=== PATIENT | male | born 1960 | race Caucasian/White ===

== ENCOUNTER 2017-04-25 16:33 | Observation (INO) ==
[2017-04-25] MEDS ORDERED: METOPROLOL TARTRATE 25 MG TABLET PO STA (17:02)
[2017-04-25] MEDS ORDERED: ALUM/MAG/SIMETH/LIDO VISC 1:1 30 ML BOTTLE PO STA (17:02)
[2017-04-25] MEDS ORDERED: MORPHINE 2 MG/1 ML SYRINGE IV STA (17:02)
[2017-04-25] MEDS ORDERED: ONDANSETRON 4 MG/2 ML VIAL IV STA (17:02)
[2017-04-25] MEDS ORDERED: NITROGLYCERIN 2% OINT 1 INCH/GM PACK TOP STA (17:02)
[2017-04-25] MEDS ORDERED: ASPIRIN 325 MG TABLET PO STA (17:02)
[2017-04-25] MEDS ORDERED: ENOXAPARIN 100 MG/ML SYRINGE SUBCUT STA (17:02)
[2017-04-25] MEDS ORDERED: NITROGLYCERIN 2% OINT 1 INCH/GM PACK TOP ONE (17:12)
[2017-04-25] MEDS ORDERED: ENOXAPARIN 80 MG/0.8 ML SYRINGE SUBCUT ONE (17:12)
[2017-04-25] MEDS ORDERED: ASPIRIN 325 MG TABLET ONE (17:13)
[2017-04-25] MEDS ORDERED: MORPHINE 2 MG/1 ML SYRINGE ONE (17:13)
[2017-04-25] MEDS ORDERED: ALUM/MAG/SIMETH/LIDO VISC 1:1 30 ML BOTTLE PO ONE (17:13)
[2017-04-25] MEDS ORDERED: ONDANSETRON 4 MG/2 ML VIAL ONE (17:13)
--- NOTE | 2017-04-25 17:19 | Emergency Department Note ---
Von Sanders Brittany, am scribing for, and in the presence of, Jhon Drake MD 17:08. Vidal Sanders Charles R, MD, personally performed the services described in this documentation, ascribed by Tram Longoria in my presence, and it is both accurate and complete . Arrival - Arrival Chief Complaint: Chest Pain Stated Complaint: chest pain, light headed,sob ED Nursing Triage Note: c/o chest heaviness and sob onset 4 days ago. Mode of Arrival: Ambulatory Limitations: No Limitations Source: Patient, RN Notes Reviewed - History of Present Illness HPI Narrative: Patient is a 56 y/o white male presenting to the ED with c/o chest pain with an onset of 4 days ago. Patient describes this pain as a heaviness/ "ton of bricks " beginning in the left side of the chest that radiates into the left axilla. He confirms associated shortness of breath and dizziness, but denies any diaphoresis, N/V, radiation of pain into the back, neck, or down the arm. Daughter in room reports that upon patient standing he becomes very dizzy and becomes near syncopal. For the past 3 days he has mostly lied on the couch. She reports that he was seen at [facility] [place] [place] for this pain and states an EKG was performed and patient was given NTG, but he was DC'd and she believes that this may have been due to patient's lack of insurance. He is a patient of Dr. Spring. Patient has a MHx significant for [place] at the age of 36 and a strong FHx for Heart Dz. No other complaint/pain in the ED at this time. Onset (ago): day(s) (4) Consistency: constant Allergies/Adverse Reactions: Allergies Allergy/AdvReac Type Severity Reaction Status Date / Time No Known Allergies Allergy Unverified 04/25/17 16:39 Home Medications: Home Medications Medication Instructions Recorded Confirmed Type Aspirin EC Tab 325 mg PO DAILY 04/25/17 04/25/17 History Potassium Chloride 10 meq PO DAILY 04/25/17 04/25/17 History Review of System - Review of System 12 point system: reviewed and no additional remarkable complaints except as stated - Review of System Constitutional: Absent: chills, fever Eyes: Absent: vision change Head/Ears/Nose/Throat: Absent: nasal drainage, sore throat Respiratory: Present: respiratory distress Cardiovascular: Present: chest pain, syncope (near) Gastrointestinal: Absent: abdominal pain, nausea, vomiting, diarrhea, constipation Genitourinary male: Absent: urgency, dysuria, frequency Musculoskeletal: Absent: arm pain, back pain, leg pain, neck pain Skin: Absent: rash Neurological: Absent: headache Psychiatric: Absent: anxiety, depression Medical,Surgical,& Family Hx - Medical History Cardio: History of: [place] (20 years ago) - Surgical History Surgical History: noncontributory - Family History Family History: Reports;: Family Heart Disease - Social History Smoking Status: Smoker, status unknown Frequency of Alcohol Use: Occasionally Type of Drug Use: None Exam Vital Signs: Vital Signs Temperature 98.3 F 04/25/17 16:40 Pulse Rate 94 H 04/25/17 16:40 Respiratory Rate 22 04/25/17 16:40 Blood Pressure 139/88 04/25/17 16:40 O2 Sat by Pulse Oximetry 100 04/25/17 16:52 - General General appearance: alert, in no apparent distress - Head Head exam: Present: atraumatic, normocephalic, normal inspection - Eye Eye exam: Present: normal appearance, PERRL, EOMI - ENT ENT exam: Present: normal exam, normal oropharynx - Neck Neck exam: Present: normal inspection, full ROM, trachea midline - Chest Chest inspection: Present: normal inspection, symmetric chest wall rise - Respiratory Respiratory exam: Present: accessory muscle use, rhonchi (bilateral rhonchi), other (speaks in 1-2 word sentences). Absent: normal lung sounds bilaterally - Cardiovascular Cardiovascular exam: Present: normal rhythm, tachycardia, normal heart sounds. Absent: regular rate - Abdominal Exam Abdominal exam: Present: soft, normal bowel sounds. Absent: tenderness - Extremities Exam Extremities exam: Present: normal inspection - Back Exam Back exam: Present: normal inspection - Neurological Exam Neurological exam: Present: alert, oriented X3, CN II-XII intact. Absent: motor sensory deficit - Psychiatric Psychiatric exam: Present: normal affect, normal mood - Skin Skin exam: Present: warm, dry, diaphoresis (patient is clammy to touch) Course - Consultations Consultation #1: Hospitalist will admit patient Time: 17:53 Results - Labs CBC & BMP: 04/25/17 17:06 07/04/17 17:06 Lab Results: I have reviewed the patients labs Labs: Laboratory Tests 04/25/17 17:06 WBC 10.2 RBC 4.77 Hgb 16.0 Hct 44.9 MCV 94.1 MCH 34 MCHC 35.6 RDW 12.6 Plt Count 263 MPV 9.5 L Neut % (Auto) 49.2 Lymph % (Auto) 41.1 Ripley % (Auto) 8.6 Eos % (Auto) 0.6 Baso % (Auto) 0.2 Neut # (Auto) 5.0 Lymph # (Auto) 4.2 H Ripley # (Auto) 0.9 H Eos # (Auto) 0.1 Baso # (Auto) 0.0 Immature Gran % 0.3 Nucleated RBC % 0.0 Immature Gran # 0.03 Nucleated RBCs # 0.00 - Diagnostic Findings Procedure: Chest x-ray: report reviewed by me (No acute pathology seen.) Disposition Clinical Impression: Chest pain, Unstable angina pectoris Case discussed with: patient, patient's family Disposition: Still a Patient Condition: Guarded Time of Disposition: 17:54
[2017-04-25 17:22] LABS: Basophils % 0.2 % (0.0-0.8); Eosinophils # 0.1 10*3/uL (0.0-0.87); Eosinophils % 0.6 % (0.00-10.9); Hematocrit 44.9 VOL% (42.0-52.0); Immature Granulocytes % 0.3 %; Immature Granulocytes Absolute 0.03 #; Lymphocytes # 4.2 10*3/uL (1.4-4.0); Lymphocytes % 41.1 % (21.2-54.2); Mean Corpuscular HGB Conc 35.6 GM/DL (32-36); Mean Corpuscular Hemoglobin 34 PG (27-34); Mean Corpuscular Volume 94.1 FL (87-102); Mean Platelet Volume 9.5 FL (9.6-12.0); Monocytes # 0.9 10*3/uL (0.11-0.8); Monocytes % 8.6 % (1.7-12.7); Neutrophils % 49.2 % (38.7-73.9); Platelet Count 263 T/CUMM (130-400); Red Blood Count 4.77 MC/CUMM (3.8-5.5); Red Cell Distribution Width 12.6 % (9.3-17.3); White Blood Count 10.2 T/CUMM (4-12)
[2017-04-25] MEDS ORDERED: METOPROLOL TARTRATE 25 MG TABLET ONE (17:28)
--- NOTE | 2017-04-25 17:29 | XRay Report ---
Chest, 2 views History is chest pain The heart is normal in size No congestive failure or confluent infiltrate is seen Impression: No acute pathology seen PROCEDURE INTERPRETED AT [facility] DEPARTMENT OF RADIOLOGY Final Report Signed by: Dr. Dory Braswell
[2017-04-25 17:31] LABS: Apearance,Urine CLEAR (Clear); Bilirubin,Urine Negative (Negative); Blood, Urine Small mg/dL (Negative); Glucose,Urine (UA) Negative (Negative); Ketones,Urine Negative (Negative); Nitrite,Urine Negative (Negative); Protein,Urine Negative; Urine Color Colorless (Yellow); Urine Urobilinogen < 2.0 EU/DL (0.2-1.0)
[2017-04-25 17:35] LABS: Magnesium 1.9 MG/DL (1.8-2.4)
[2017-04-25 17:43] LABS: Bilirubin,Total 0.5 MG/DL (0.2-1.0); Calcium 9.1 MG/DL (8.5-10.1); Osmolality,Calculated 274.5 MOS/KG (273-304); Potassium 3.8 MMOL/L (3.5-5.1); Total Protein 7.2 G/DL (6.4-8.3)
[2017-04-25 17:44] LABS: Barbiturates Screen,Urine Negative (Negative); Benzodiazepines Screen,Urine Negative (Negative); Cannabinoid Screen,Urine Negative (Negative); Opiate Screen,Urine Negative (Negative); Phencyclidine Screen,Urine Negative (Negative)
--- NOTE | 2017-04-25 18:25 | Hospitalist History & Physical ---
<Agus Yuan - Last Filed: 04/25/17 18:35> Assessment and Plan (1) Chest pain Status: Acute Assessment and plan: Admit to telemetry. Cardiac monitoring. Serial EKGs and serial troponins. Consult cardiology due to patient's strong family hx. Current Visit: Yes (2) Elevated lipase Status: Acute Assessment and plan: Possibly secondary to alcohol abuse. Current Visit: Yes History of Present Illness Chief complaint: chest pain/shortness of breath History of present illness: Mr. Parks is a 56 year old white male with a history of [place] that presented to the ED today with complaints of chest pain, shortness of breath, and dizziness. Pt. reports that the symptoms began 4 days ago. He says that he was seen at [facility] days ago. At that time an EKG was performed, he received nitro and was released. Pt. states that the pain has persisted. He describes the pain as alternating between sharp and dull in intensity. It starts midsternally and radiates into his left chest and goes down his arm. He reported "feels like concrete bricks are on my chest". The pain takes his breath away and he becomes weak and dizzy. Presently in the ED, the patient states the pain is dull and intermittent. He has on supplemental O2. Pt is a current smoker (greater than 1 pack a day). Pt. also admits to very strong family history of heart disease (mom , dad, and brother). The patient denies any other complaints in the ED in this time. Troponins are negative, ekg unremarkable. Pt.'s case was discussed with Dr. Yuan and he will be admitted for observation. Home Medications Medication Instructions Recorded Confirmed Type Aspirin EC Tab 325 mg PO DAILY 04/25/17 04/25/17 History Potassium Chloride 10 meq PO DAILY 04/25/17 04/25/17 History Allergies Allergy/AdvReac Type Severity Reaction Status Date / Time No Known Allergies Allergy Unverified 04/25/17 16:39 Medical,Surgical,& Family Hx - Medical History Cardio: History of: [place] (20 years ago) - Family History Family History: Reports;: Family Cancer, Family Heart Disease, Family Stroke - Social History Smoking Status: Current every day smoker Frequency of Alcohol Use: Occasionally Type of Drug Use: None Marital Status: Lives With:: Spouse Functional capacity: independent ambulation - Constitutional Constitutional: Absent: chills, fever(s) - EENT Eyes: Absent: blurry vision, loss of vision - Cardiovascular Cardiovascular: Present: chest pain at rest, dyspnea on exertion, radiating jaw , neck or arm pain. Absent: edema - Gastrointestinal Gastrointestinal: Absent: abdominal pain, nausea, vomiting - Genitourinary Genitourinary: Absent: difficulty urinating, hematuria - Musculoskeletal Musculoskeletal: Absent: back pain, limited range of motion - Neurological Neurological: Present: dizziness. Absent: confusion - Psychiatric Psychiatric: Absent: anxiety, confusion - Hematologic/Lymphatic Hematologic/Lymphatic: Absent: easy bleeding Exam - Constitutional Vitals: Period Temp Pulse Resp BP Sys/Herrera Pulse Ox Last 24 Hr 98.3 F-98.3 F 94-94 20-22 139-139/88-88 97-100 General appearance: normal weight, no acute distress - Head Head exam: Present: normal inspection, normocephalic - Eye Eye exam: Present: EOMI. Absent: periorbital swelling Pupils: Present: TOMAS. Absent: fixed - Respiratory Respiratory exam: Present: clear to auscultation bilaterally. Absent: wheezes - Cardiovascular Cardiovascular exam: Present: regular rate and rhythm - GI/Abdominal GI/Abdominal exam: Present: normal bowel sounds, soft. Absent: tenderness - Extremities Exam Extremities exam: Absent: edema - Neurological Exam Neurological exam: Present: alert, oriented X3 - Psychiatric Psychiatric exam: Present: normal affect, normal mood - Skin Skin exam: Present: normal color, warm, dry Results - Labs CBC & BMP: 04/25/17 17:06 04/25/17 17:06 Lab Results: I have reviewed the past 24 hour labs <Ariane Yuan - Last Filed: 04/25/17 19:02> Assessment and Plan (1) Near syncope Status: Acute Assessment and plan: one liter normal saline and orthostatics Current Visit: Yes (2) Unstable angina pectoris Status: Acute Assessment and plan: serial troponins and ekgs, asa, nicotine patch, consult cardiology Current Visit: Yes (3) Elevated lipase Status: Acute Assessment and plan: asymptomatic, thiamine and folate, lipid profile in am Current Visit: Yes History of Present Illness History of present illness: Mr. Parks is a 56 year old male seen and examined. History and physical reviewed and edited. Agree with above Medical,Surgical,& Family Hx - Surgical History Cardiac Surgeries: Sugical HX of: Cardiac Catheterization - Constitutional Constitutional: Present: fatigue - EENT Nose, mouth and throat: Absent: headache(s), sore throat - Cardiovascular Cardiovascular: Present: dyspnea - Respiratory Respiratory: Present: dyspnea, dyspnea on exertion - Neurological Neurological: Absent: syncope - Psychiatric Psychiatric: Absent: depression - Endocrine Endocrine: Present: fatigue. Absent: cold intolerance, heat intolerance Exam - Constitutional Vitals: Period Temp Pulse Resp BP Sys/Herrera Pulse Ox Last 24 Hr 98.3 F-98.3 F 71-94 18-22 123-156/84-99 97-100 - Eye Eye exam: Absent: scleral icterus - ENT ENT exam: Present: normal exam, normal external ear exam - Neck Neck exam: Absent: lymphadenopathy, thyromegaly - Cardiovascular Cardiovascular exam: Absent: systolic murmur - Extremities Exam Extremities exam: Present: normal inspection, normal capillary refill - Neurological Exam Neurological exam: Present: CN II-XII intact, reflexes normal. Absent: motor sensory deficit Results - Labs CBC & BMP: 04/25/17 17:06 04/25/17 17:06 - EKG EKG shows: sinus rhythm - Diagnostic Findings Procedure: Chest x-ray: report reviewed by me (nothing acute )
[2017-04-25] MEDS ORDERED: SODIUM CHLORIDE 0.9% 1,000 ML IV STA (18:28)
[2017-04-25] MEDS ORDERED: SODIUM CHLORIDE 0.9% 1,000 ML IV ONE (19:30)
[2017-04-25] MEDS ORDERED: LORazepam 2 MG/1 ML VIAL IV PRN (20:33)
[2017-04-25] MEDS ORDERED: diphenhydrAMINE CAP 25 MG CAPSULE PO PRN (20:33)
[2017-04-25] MEDS ORDERED: ACETAMINOPHEN 325 MG TABLET PO PRN (20:33)
[2017-04-25] MEDS: FAMOTIDINE 20 MG TABLET PO SCH (21:24)
[2017-04-25] MEDS: SODIUM CHLORIDE 0.9% 1,000 ML IV SCH (21:25)
--- NOTE | 2017-04-26 02:59 | EKG Report ---
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
[2017-04-26 05:57] LABS: Basophils % 0.3 % (0.0-0.8); Eosinophils # 0.1 10*3/uL (0.0-0.87); Eosinophils % 0.9 % (0.00-10.9); Hematocrit 39.3 VOL% (42.0-52.0); Immature Granulocytes % 0.3 %; Immature Granulocytes Absolute 0.02 #; Lymphocytes # 3.5 10*3/uL (1.4-4.0); Lymphocytes % 47.4 % (21.2-54.2); Mean Corpuscular HGB Conc 34.6 GM/DL (32-36); Mean Corpuscular Hemoglobin 33 PG (27-34); Mean Corpuscular Volume 96.6 FL (87-102); Mean Platelet Volume 9.6 FL (9.6-12.0); Monocytes # 0.6 10*3/uL (0.11-0.8); Monocytes % 8.4 % (1.7-12.7); Neutrophils # 3.2 10*3/uL (1.4-7.4); Neutrophils % 42.7 % (38.7-73.9); Platelet Count 215 T/CUMM (130-400); Red Blood Count 4.07 MC/CUMM (3.8-5.5); Red Cell Distribution Width 12.8 % (9.3-17.3); White Blood Count 7.4 T/CUMM (4-12)
[2017-04-26 06:06] LABS: Hemoglobin 13.6 GM/DL (14.0-18.0)
--- NOTE | 2017-04-26 06:21 | EKG Report ---
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
--- NOTE | 2017-04-26 06:21 | EKG Report ---
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
[2017-04-26 06:40] LABS: Albumin 3.2 G/DL (3.4-5.0); Bilirubin,Total 0.9 MG/DL (0.2-1.0); Calcium 8.4 MG/DL (8.5-10.1); Osmolality,Calculated 277.3 MOS/KG (273-304); Potassium 4.5 MMOL/L (3.5-5.1); Risk Ratio 2.62; Thyroid Stimulating Hormone 2.83 uIU/ml (0.358-3.74); Total Protein 5.6 G/DL (6.4-8.3); VLDL CHOLESTEROL 16.6 MG/DL
[2017-04-26] MEDS ORDERED: FOLIC ACID 1 MG TABLET PO SCH (09:00)
[2017-04-26] MEDS ORDERED: NICOTINE 21 MG/24 HR PATCH TRANSDERM SCH (09:00)
[2017-04-26] MEDS ORDERED: THIAMINE 100 MG TABLET PO SCH (09:00)
[2017-04-26] MEDS ORDERED: ASPIRIN 325 MG TABLET PO SCH (09:00)
--- NOTE | 2017-04-26 09:03 | Cardiology Consult Note ---
Jazz Sanders April RN, am scribing for, and in the presence of, Renard Woodard MD 08 :58. Assessment and Plan - Time spent with patient Time spent with patient: Greater than 30 minutes (Due to assessment, planning, documentation, medication review) (1) Chest pain Status: Acute Assessment and plan: 56-year-old male, presenting with chest pain, not typical for angina, dizzyness , SOB. Prior history of remote suspected CAD/WI, not well documented, smoker, positive family history for CAD, elevated lipase. Intermittent lower extremity pain, at rest, not typical for claudication, good pulses. D-dimer normal. -Proceed with stress test today. NPO -Continue aspirin, multiple CV risk factors. Blood pressure was mildly elevated at admission, now normal. 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 Parks is a 56 year old male who is not routinely followed by cardiology. He says he had an WI approximately 20 years ago, but he is unsure as to what facility this was found. He denies having had a heart cath, he states he was treated with medicine. He says he has had a stress test in the past, but is unsure where it was done or when. He denies any other medical history. He states an aspirin and potassium are the only medications he takes on a routine basis. Surgical history includes appendectomy. Family history includes father and brother with WI, father with stroke, and mother and father with cancer. He currently smokes more than 1 pack per day. For several weeks now he says he has had a dull ache that is all across his chest. Monday he began to experience dizziness and shortness of breath at rest that was worse with exertion. On Monday he also developed sharp pain that was in the center of his chest. He said it would radiate to under his left arm and up into his jaw. He says this would last for a few seconds at a time. No triggers or alleviators noted. It is not reproducible. He states it was a 8 on a scale of 1-10. On Monday he presented to [facility] emergency department for these complaints. He states he was given sublingual nitroglycerin that did ease the pain, but states it took a while. Since then, he has continued to be dizzy and short of breath and has a dull ache. Yesterday the sharp pain returned he presented to our emergency department for further evaluation. Again he describes the pain as above. The sharp pain was relieved with IV morphine and nitro patch. He has not had any more sharp pain since then. He continues to be dizzy short of breath and have a dull ache. He says the dizziness is worse upon standing. He denies any episodes of syncope, but states there have been times when he felt like he would pass out. He denies any abdominal pain or discomfort. EKG on admission showed sinus rhythm heart rate of 83. Chest x-ray showed no acute pathology. Troponin has been negative 3. Lipase is elevated at 599. He is currently seen resting in bed. He continues to have a dizziness and shortness of breath as well as a dull ache. He reports the sharp pain has not returned. Vital signs have been stable, blood pressure this morning 113/68. We will order stress testing as well as echocardiogram and carotid duplex. CC: Michael Schaefer, DO - Home Medications and Allergies Home Medications: Home Medications Medication Instructions Recorded Confirmed Type Aspirin EC Tab 325 mg PO DAILY 04/25/17 04/25/17 History Potassium Chloride 10 meq PO DAILY 04/25/17 04/25/17 History Allergies/Adverse Reactions: Allergies Allergy/AdvReac Type Severity Reaction Status Date / Time No Known Allergies Allergy Unverified 04/25/17 16:39 - Constitutional Constitutional: Present: as per HPI - EENT Eyes: Present: loss of vision, requires corrective lense Ears: Present: tinnitus. Absent: ear pain Nose, mouth and throat: Present: headache(s). Absent: epistaxis, neck pain - Cardiovascular Cardiovascular: Present: chest pain at rest, dyspnea, dyspnea on exertion, radiating jaw, neck or arm pain, lightheadedness. Absent: diaphoresis, edema, orthopnea, palpitations - Respiratory Respiratory: Present: cough, dyspnea, dyspnea on exertion. Absent: hemoptysis, wheezing - Gastrointestinal Gastrointestinal: Absent: abdominal pain, constipation, diarrhea, hematemesis, hematochezia, melena, nausea, vomiting - Genitourinary Genitourinary: Absent: dysuria, hematuria - Musculoskeletal Musculoskeletal: Present: limited range of motion, muscle weakness. Absent: back pain - Neurological Neurological: Present: dizziness, headache(s), other (Near-syncope). Absent: abnormal gait, abnormal speech, confusion, frequent falls, syncope - Psychiatric Psychiatric: Absent: anxiety, depression - Endocrine Endocrine: Present: fatigue - Hematologic/Lymphatic Hematologic/Lymphatic: Present: easy bruising. Absent: easy bleeding Medical,Surgical,& Family Hx - Medical History Cardio: History of: WI (20 years ago?) - Surgical History Abdominal Surgeries: Surgical HX of: Appendectomy - Family History Family History: Reports;: Family Cancer (Mother, father), Family Heart Disease ( Father, brother), Family Stroke (Father) - Social History Smoking Status: Current every day smoker (Snacks more than 1 pack a day) Have you smoked in the last 12 months: Yes Time spent discussing smoking cessation with patient: 3 to 10 minutes Frequency of Alcohol Use: Occasionally Type of Drug Use: None Marital Status: Lives With:: Spouse Functional capacity: independent ambulation Physical Examination Vital Signs Temp Pulse Resp BP Pulse Ox 98.3 F 94 H 22 139/88 97 04/25/17 16:40 04/25/17 16:40 04/25/17 16:40 04/25/17 16:40 04/25/17 16:40 General: Present: Appears Well, No Apparent Distress HEENT: Present: PERRL, Mucus Membranes Moist Neck: Present: Supple Neck, Midline Trachea, No Bruit Cardiac: Present: Reg Rate and Rhythm, No Murmur, Bradycardia Lungs: Present: Normal Breath Sounds, Oxygen (Via nasal cannula), No Wheeze, Rales, Rhonchi Neuro: Absent: Resting Tremor, Essential Tremor Abdomen: Present: Soft, Active Bowel Sounds, Non-Tender. Absent: Distended Skin: Absent: Rash, Suspicious Lesions Musculoskeletal: Present: Decreased Range of Motion, Pain in Joint Gait: Present: Normal Gait Extremities: Present: Normal Gait, No Edema, Normal Upper Extr. Pulses, Normal Lower Extr. Pulses Result/EKG - Labs CBC & BMP: 04/26/17 04:42 04/26/17 04:42 Lab Results: I have reviewed the past 24 hour labs Labs: Laboratory Results - last 24 hr 04/25/17 04/25/17 04/25/17 17:06 17:06 17:06 WBC 10.2 RBC 4.77 Hgb 16.0 Hct 44.9 MCV 94.1 MCH 34 MCHC 35.6 RDW 12.6 Plt Count 263 MPV 9.5 L Neut % (Auto) 49.2 Lymph % (Auto) 41.1 [place] % (Auto) 8.6 Eos % (Auto) 0.6 Baso % (Auto) 0.2 Neut # (Auto) 5.0 Lymph # (Auto) 4.2 H [place] # (Auto) 0.9 H Eos # (Auto) 0.1 Baso # (Auto) 0.0 Immature Gran % 0.3 Nucleated RBC % 0.0 Immature Gran # 0.03 Nucleated RBCs # 0.00 D-Dimer, Quantitative <= 0.5 Sodium 139 Potassium 3.8 Chloride 106 Carbon Dioxide 22 Anion Gap 14.8 BUN 9 Creatinine 0.80 GFR Calculation 102 BUN/Creatinine Ratio 11.00 Glucose 84 Calculated Osmolality 274.5 Calcium 9.1 Magnesium Total Bilirubin 0.50 AST 12 ALT 24 Alkaline Phosphatase 82 Troponin I B-Natriuretic Peptide Total Protein 7.2 Albumin 4.0 Globulin 3.2 Albumin/Globulin Ratio 1.2 Triglycerides Cholesterol LDL Cholesterol VLDL Cholesterol HDL Cholesterol Heart Disease Risk Ratio Lipase Free T4 TSH 3rd Generation Urine Color Urine Appearance Urine pH Ur Specific [place] Urine Protein Urine Glucose (UA) Urine Ketones Urine Blood Urine Nitrate Urine Bilirubin Urine Urobilinogen Urine Leukocytes Ur Culture Indicated? Urine Opiates Screen Ur Barbiturates Screen Ur Phencyclidine Scrn U Amphetamine/Methamph U Benzodiazepines Scrn U Cocaine Metab Screen U Cannabinoids Screen 04/25/17 04/25/17 04/25/17 17:06 17:06 17:06 WBC RBC Hgb Hct MCV MCH MCHC RDW Plt Count MPV Neut % (Auto) Lymph % (Auto) [place] % (Auto) Eos % (Auto) Baso % (Auto) Neut # (Auto) Lymph # (Auto) [place] # (Auto) Eos # (Auto) Baso # (Auto) Immature Gran % Nucleated RBC % Immature Gran # Nucleated RBCs # D-Dimer, Quantitative Sodium Potassium Chloride Carbon Dioxide Anion Gap BUN Creatinine GFR Calculation BUN/Creatinine Ratio Glucose Calculated Osmolality Calcium Magnesium 1.9 Total Bilirubin AST ALT Alkaline Phosphatase Troponin I < 0.015 B-Natriuretic Peptide Total Protein Albumin Globulin Albumin/Globulin Ratio Triglycerides Cholesterol LDL Cholesterol VLDL Cholesterol HDL Cholesterol Heart Disease Risk Ratio Lipase 599.0 H Free T4 TSH 3rd Generation Urine Color Colorless Urine Appearance Clear Urine pH 6.0 Ur Specific [place] 1.000 L Urine Protein Negative Urine Glucose (UA) Negative Urine Ketones Negative Urine Blood Small Urine Nitrate Negative Urine Bilirubin Negative Urine Urobilinogen < 2.0 H Urine Leukocytes Negative Ur Culture Indicated? Not indicated Urine Opiates Screen Ur Barbiturates Screen Ur Phencyclidine Scrn U Amphetamine/Methamph U Benzodiazepines Scrn U Cocaine Metab Screen U Cannabinoids Screen 04/25/17 04/25/17 04/25/17 17:06 17:06 20:25 WBC RBC Hgb Hct MCV MCH MCHC RDW Plt Count MPV Neut % (Auto) Lymph % (Auto) [place] % (Auto) Eos % (Auto) Baso % (Auto) Neut # (Auto) Lymph # (Auto) [place] # (Auto) Eos # (Auto) Baso # (Auto) Immature Gran % Nucleated RBC % Immature Gran # Nucleated RBCs # D-Dimer, Quantitative Sodium Potassium Chloride Carbon Dioxide Anion Gap BUN Creatinine GFR Calculation BUN/Creatinine Ratio Glucose Calculated Osmolality Calcium Magnesium Total Bilirubin AST ALT Alkaline Phosphatase Troponin I < 0.015 B-Natriuretic Peptide 11 Total Protein Albumin Globulin Albumin/Globulin Ratio Triglycerides Cholesterol LDL Cholesterol VLDL Cholesterol HDL Cholesterol Heart Disease Risk Ratio Lipase Free T4 TSH 3rd Generation Urine Color Urine Appearance Urine pH Ur Specific [place] Urine Protein Urine Glucose (UA) Urine Ketones Urine Blood Urine Nitrate Urine Bilirubin Urine Urobilinogen Urine Leukocytes Ur Culture Indicated? Urine Opiates Screen Negative Ur Barbiturates Screen Negative Ur Phencyclidine Scrn Negative U Amphetamine/Methamph Negative U Benzodiazepines Scrn Negative U Cocaine Metab Screen Negative U Cannabinoids Screen Negative 04/25/17 04/26/17 04/26/17 22:29 04:42 04:42 WBC 7.4 RBC 4.07 Hgb 13.6 L D Hct 39.3 L MCV 96.6 MCH 33 MCHC 34.6 RDW 12.8 Plt Count 215 MPV 9.6 Neut % (Auto) 42.7 Lymph % (Auto) 47.4 [place] % (Auto) 8.4 Eos % (Auto) 0.9 Baso % (Auto) 0.3 Neut # (Auto) 3.2 Lymph # (Auto) 3.5 [place] # (Auto) 0.6 Eos # (Auto) 0.1 Baso # (Auto) 0.0 Immature Gran % 0.3 Nucleated RBC % 0.0 Immature Gran # 0.02 Nucleated RBCs # 0.00 D-Dimer, Quantitative Sodium 141 Potassium 4.5 Chloride 108 H Carbon Dioxide 27 Anion Gap 10.5 BUN 8 Creatinine 0.90 GFR Calculation 95 BUN/Creatinine Ratio 8.00 Glucose 86 Calculated Osmolality 277.3 Calcium 8.4 L Magnesium 2.0 Total Bilirubin 0.90 AST 10 ALT 20 Alkaline Phosphatase 68 Troponin I < 0.015 B-Natriuretic Peptide Total Protein 5.6 L Albumin 3.2 L Globulin 2.4 Albumin/Globulin Ratio 1.3 Triglycerides 83 Cholesterol 136 LDL Cholesterol 79.0 VLDL Cholesterol 16.6 HDL Cholesterol 52 Heart Disease Risk Ratio 2.62 Lipase Free T4 TSH 3rd Generation 2.830 Urine Color Urine Appearance Urine pH Ur Specific [place] Urine Protein Urine Glucose (UA) Urine Ketones Urine Blood Urine Nitrate Urine Bilirubin Urine Urobilinogen Urine Leukocytes Ur Culture Indicated? Urine Opiates Screen Ur Barbiturates Screen Ur Phencyclidine Scrn U Amphetamine/Methamph U Benzodiazepines Scrn U Cocaine Metab Screen U Cannabinoids Screen 04/26/17 04:42 WBC RBC Hgb Hct MCV MCH MCHC RDW Plt Count MPV Neut % (Auto) Lymph % (Auto) [place] % (Auto) Eos % (Auto) Baso % (Auto) Neut # (Auto) Lymph # (Auto) [place] # (Auto) Eos # (Auto) Baso # (Auto) Immature Gran % Nucleated RBC % Immature Gran # Nucleated RBCs # D-Dimer, Quantitative Sodium Potassium Chloride Carbon Dioxide Anion Gap BUN Creatinine GFR Calculation BUN/Creatinine Ratio Glucose Calculated Osmolality Calcium Magnesium Total Bilirubin AST ALT Alkaline Phosphatase Troponin I B-Natriuretic Peptide Total Protein Albumin Globulin Albumin/Globulin Ratio Triglycerides Cholesterol LDL Cholesterol VLDL Cholesterol HDL Cholesterol Heart Disease Risk Ratio Lipase Free T4 0.89 TSH 3rd Generation Urine Color Urine Appearance Urine pH Ur Specific [place] Urine Protein Urine Glucose (UA) Urine Ketones Urine Blood Urine Nitrate Urine Bilirubin Urine Urobilinogen Urine Leukocytes Ur Culture Indicated? Urine Opiates Screen Ur Barbiturates Screen Ur Phencyclidine Scrn U Amphetamine/Methamph U Benzodiazepines Scrn U Cocaine Metab Screen U Cannabinoids Screen - Diagnostic Findings Procedure: Chest x-ray: report reviewed by me - EKG EKG results: interpreted by me EKG shows: sinus rhythm Vance Sanders Attila, MD, personally performed the services described in this documentation, ascribed by Jaida Schulz RN in my presence, and it is both accurate and complete 903 .
[2017-04-26] MEDS ORDERED: REGADENOSON 0.4 MG/5 ML SYRINGE IV ONE (10:45)
--- NOTE | 2017-04-26 11:47 | ECHO Report ---
Devang Parks Exam Date: 04/26/2017 10:09 Referring Physician: Technologist: Yris Bentley RDCS Age: 56 Ht (in): 66 Wt (lb): 140 Gender: M Exam Location: [facility] Echo Indications: Chest pain, unspecified, Elevated lipase, Shortness of breath, Dizziness and giddiness, Chronic fatigue, unspecified, Weakness, Nicotine dependence, cigarettes, uncomplicated, Near syncope BP: 113 / 68 HR: 74 Rhythm: Sinus Technical Quality: IMPRESSIONS Normal left ventricular cavity size. Normal left ventricular wall thickness. Left ventricular ejection fraction is estimated at 65 %. Normal diastolic function. Borderline pulmonary hypertension. No significant valvular issues. MEASUREMENTS (Male / Female) Normal Values 2D ECHO LV Diastolic Diameter PLAX 4.3 cm 4.2 - 5.9 / 3.9 - 5.3 cm LV Systolic Diameter PLAX 2.4 cm LV Fractional Shortening PLAX 43.3 % IVS Diastolic Thickness 0.7 cm 0.6 - 1.0 / 0.6 - 0.9 cm LVPW Diastolic Thickness 0.8 cm 0.6 - 1.0 / 0.6 - 0.9 cm RV Internal Dim ED PLAX 3.6 cm Aortic Root Diameter 3.3 cm LA Systolic Diameter LX 2.9 cm 3.0 - 4.0 / 2.7 - 3.8 cm DOPPLER TR Peak Velocity 280.0 cm/s TR Peak Gradient 31.4 mmHg FINDINGS Left Ventricle Normal left ventricular cavity size. Normal left ventricular wall thickness. Left ventricular ejection fraction is estimated at 65 %. Normal diastolic function. Right Ventricle The right ventricle is normal in size and function. Right Atrium The right atrium is normal in size. Left Atrium The left atrium is normal in size. Mitral Valve Morphologically normal mitral valve without significant stenosis or prolapse. There is trace mitral regurgitation. Aortic Valve Morphologically normal aortic valve without significant sclerosis or stenosis. There is no aortic regurgitation. Tricuspid Valve Morphologically normal tricuspid valve. Trace to mild tricuspid valve regurgitation. Tricuspid regurgitation velocities suggest a PAP of 41 mmHg. Pulmonic Valve Morphologically normal pulmonic valve without significant stenosis. There is no pulmonic regurgitation. Pericardium Normal pericardium without effusion. Aorta Normal ascending aorta dimension. Renard Woodard (Electronically Signed) Final Date: 26 April 2017 11:46
[2017-04-26 12:01] VITALS: BP 130/84
--- NOTE | 2017-04-26 12:01 | Ultrasound Report ---
US carotid duplex BI Indication: Dizziness. Comparison: None. Technique: Multiple longitudinal and transverse real-time sonographic images of the bilateral carotid arterial systems are obtained with grayscale, spectral, and color Doppler analysis. Findings: Peak systolic velocities within the right CCA, proximal ICA, and distal ICA are 89, 52, and 68 cm/s respectively. Peak systolic velocities within the left CCA, proximal ICA, and distal ICA are 65, 61, and 75 cm/s respectively. ICA/CCA ratios on the right and left are 0.8 and 1.2 respectively. Antegrade flow demonstrated within the bilateral vertebral arteries. Grayscale imaging demonstrates minimal bilateral atherosclerotic plaque. IMPRESSION: No convincing sonographic evidence of significant (50% or greater) narrowing of either cervical internal carotid artery. Indirect NASCET criteria utilized. PROCEDURE INTERPRETED AT [facility] DEPARTMENT OF RADIOLOGY Final Report Signed by: Dr Raf Uribe
--- NOTE | 2017-04-26 12:37 | Event Note ---
Underwent stress testing this morning. Achieved 6.1 METS on treadmill however, due to significant shortness of breath and chest pressure, patient was unable to attain minimal predicted target heart rate. For this reason, he was transitioned to Lexiscan protocol. [address] depression noted inferolaterally at highest heart rate. No arrhythmia noted. Blood pressure responded appropriately during procedure. Patient is now being transitioned to final nuclear medicine scan. Dr. Woodard to read, interpreted and advise.
[2017-04-26] MEDS: FAMOTIDINE 20 MG TABLET PO SCH (12:42)
[2017-04-26] MEDS: SODIUM CHLORIDE 0.9% 1,000 ML IV SCH (12:43)
[2017-04-26] MEDS ORDERED: ASPIRIN EC 81 MG TABLET PO SCH (14:06)
--- NOTE | 2017-04-26 14:10 | Event Note ---
Echo showed normal systolic and diastolic function. Stress test showed no significant CAD, although limited sensitivity due to low peak heart rate achieved. Minimal PAD on carotid ultrasound. Although the patient states prior treated PR in his medical history, no evidence of significant myocardial scar was evidenced on the stress test. -Recommend aspirin 81 mg daily, Zocor 10 mg nightly. -The shortness of breath, dizzyness is likely noncardiac in etiology. Patient is a long-term smoker, recommend pulmonary eval. Lipase was also elevated. -Discussed importance of smoking cessation. -Recommend follow-up with PCP, follow-up with cardiology as needed. Please call with further questions.
--- NOTE | 2017-04-26 15:05 | Discharge Summary ---
Hospital Course - Hospital Course Hospital Course: Mr. Parks is a 56 year old white male with a history of myocardial infarction that presented to the ED on 04/25/2017 with complaints of chest pain, shortness of breath and dizziness. He was previously seen at the [facility] for similar symptoms, had an EKG performed, received NTG and was released. On arrival to the [facility], he noted that the pain persisted describing it as a midsternal sharpness and dullness that radiating into his left chest and down the left arm and felt like "concrete bricks are on my chest". He is a current everyday smoker. He was admitted to the telemetry floor through the hospital medicine service for observation overnight. Cardiology was consulted and EKGs and troponins were trended. All negative. Echocardiogram showed normal left ventricular cavity size, normal left ventricular wall thickness and a left ventricular ejection fraction which was estimated at 65%. No significant valvular abnormalities. Carotid Dopplers revealed no convincing sonographic evidence of significant narrowing of either cervical internal carotid artery. Patient also attempts undergo a treadmill stress test, became significantly short of breath with chest pressure and was transitioned to the Lexiscan protocol. He had [address] depression noted inferolaterally at the [place] heart rate. No arrhythmia was noted. He will tolerated the procedure well otherwise. At this time the patient has reached maximum benefit from hospitalization and stable for discharge. Per cardiology recommendation, the patient can be discharged home with aspirin 81 mg with pulmonology visit outpatient. Patient should follow-up with his PCP in 1-2 weeks. We will also discharge the patient on meclizine as he still complains of some dizziness. Again he should follow-up with his primary care provider in 1-2 weeks to monitor response to meclizine. Specialty Discharge - Follow Up or Referrals Follow up with: Your, PCP [Other] (F/U with primary care doctor in 2-3 days.) Discharge Plan - Discharge Data Disposition: Disch To Home/Self Care Condition at Discharge: Stable Discharge Diet: advance to your usual diet Activity: resume usual activities as tolerated Hygiene: no restrictions Weight Bearing at Discharge: full weight bearing Driving: no restrictions - Discharge Medications New Meclizine [Antivert] 25 mg PO BID #60 tablet Simvastatin [Zocor] 20 mg PO BEDTIME #30 tablet Aspirin EC Tab 81 mg PO DAILY tablet Continue Potassium Chloride 10 meq PO DAILY Discontinued Aspirin EC Tab 325 mg PO DAILY - Follow Up or Referral Follow Up: Your, PCP [Other] (F/U with primary care doctor in 2-3 days.) - Forms/Instructions Exam - Constitutional Vitals: Period Temp Pulse Resp BP Sys/Herrera Pulse Ox Last 24 Hr 97.4 F-98.5 F 57-94 18-22 104-156/60-99 96-100 General appearance: normal weight - Head Head exam: Present: normal inspection, normocephalic - Eye Eye exam: Present: EOMI Pupils: Present: TOMAS - Respiratory Respiratory exam: Present: clear to auscultation bilaterally - Cardiovascular Cardiovascular exam: Present: regular rate and rhythm - GI/Abdominal GI/Abdominal exam: Present: normal bowel sounds, soft - Extremities Exam Extremities exam: Present: normal inspection - Neurological Exam Neurological exam: Present: alert, oriented X3 - Psychiatric Psychiatric exam: Present: normal affect - Skin Skin exam: Present: normal color, warm Discharge Results Procedures and tests throughout hospitalization: Pending Orders 04/26/17 08:14 NM neha perf SPECT rest or str Routine Labs on day of discharge: Labs from last 24 hours 04/26/17 04/26/17 04/26/17 04:42 04:42 04:42 WBC 7.4 RBC 4.07 Hgb 13.6 L D Hct 39.3 L MCV 96.6 MCH 33 MCHC 34.6 RDW 12.8 Plt Count 215 MPV 9.6 Neut % (Auto) 42.7 Lymph % (Auto) 47.4 [place] % (Auto) 8.4 Eos % (Auto) 0.9 Baso % (Auto) 0.3 Neut # (Auto) 3.2 Lymph # (Auto) 3.5 [place] # (Auto) 0.6 Eos # (Auto) 0.1 Baso # (Auto) 0.0 Immature Gran % 0.3 Nucleated RBC % 0.0 Immature Gran # 0.02 Nucleated RBCs # 0.00 D-Dimer, Quantitative Sodium 141 Potassium 4.5 Chloride 108 H Carbon Dioxide 27 Anion Gap 10.5 BUN 8 Creatinine 0.90 GFR Calculation 95 BUN/Creatinine Ratio 8.00 Glucose 86 Calculated Osmolality 277.3 Calcium 8.4 L Magnesium 2.0 Total Bilirubin 0.90 AST 10 ALT 20 Alkaline Phosphatase 68 Troponin I B-Natriuretic Peptide Total Protein 5.6 L Albumin 3.2 L Globulin 2.4 Albumin/Globulin Ratio 1.3 Triglycerides 83 Cholesterol 136 LDL Cholesterol 79.0 VLDL Cholesterol 16.6 HDL Cholesterol 52 Heart Disease Risk Ratio 2.62 Lipase Free T4 0.89 TSH 3rd Generation 2.830 Urine Color Urine Appearance Urine pH Ur Specific [place] Urine Protein Urine Glucose (UA) Urine Ketones Urine Blood Urine Nitrate Urine Bilirubin Urine Urobilinogen Urine Leukocytes Ur Culture Indicated? Urine Opiates Screen Ur Barbiturates Screen Ur Phencyclidine Scrn U Amphetamine/Methamph U Benzodiazepines Scrn U Cocaine Metab Screen U Cannabinoids Screen 04/25/17 04/25/17 04/25/17 22:29 20:25 17:06 WBC RBC Hgb Hct MCV MCH MCHC RDW Plt Count MPV Neut % (Auto) Lymph % (Auto) [place] % (Auto) Eos % (Auto) Baso % (Auto) Neut # (Auto) Lymph # (Auto) [place] # (Auto) Eos # (Auto) Baso # (Auto) Immature Gran % Nucleated RBC % Immature Gran # Nucleated RBCs # D-Dimer, Quantitative Sodium Potassium Chloride Carbon Dioxide Anion Gap BUN Creatinine GFR Calculation BUN/Creatinine Ratio Glucose Calculated Osmolality Calcium Magnesium Total Bilirubin AST ALT Alkaline Phosphatase Troponin I < 0.015 < 0.015 B-Natriuretic Peptide Total Protein Albumin Globulin Albumin/Globulin Ratio Triglycerides Cholesterol LDL Cholesterol VLDL Cholesterol HDL Cholesterol Heart Disease Risk Ratio Lipase Free T4 TSH 3rd Generation Urine Color Urine Appearance Urine pH Ur Specific [place] Urine Protein Urine Glucose (UA) Urine Ketones Urine Blood Urine Nitrate Urine Bilirubin Urine Urobilinogen Urine Leukocytes Ur Culture Indicated? Urine Opiates Screen Negative Ur Barbiturates Screen Negative Ur Phencyclidine Scrn Negative U Amphetamine/Methamph Negative U Benzodiazepines Scrn Negative U Cocaine Metab Screen Negative U Cannabinoids Screen Negative 04/25/17 04/25/17 04/25/17 17:06 17:06 17:06 WBC RBC Hgb Hct MCV MCH MCHC RDW Plt Count MPV Neut % (Auto) Lymph % (Auto) [place] % (Auto) Eos % (Auto) Baso % (Auto) Neut # (Auto) Lymph # (Auto) [place] # (Auto) Eos # (Auto) Baso # (Auto) Immature Gran % Nucleated RBC % Immature Gran # Nucleated RBCs # D-Dimer, Quantitative Sodium Potassium Chloride Carbon Dioxide Anion Gap BUN Creatinine GFR Calculation BUN/Creatinine Ratio Glucose Calculated Osmolality Calcium Magnesium 1.9 Total Bilirubin AST ALT Alkaline Phosphatase Troponin I B-Natriuretic Peptide 11 Total Protein Albumin Globulin Albumin/Globulin Ratio Triglycerides Cholesterol LDL Cholesterol VLDL Cholesterol HDL Cholesterol Heart Disease Risk Ratio Lipase 599.0 H Free T4 TSH 3rd Generation Urine Color Colorless Urine Appearance Clear Urine pH 6.0 Ur Specific [place] 1.000 L Urine Protein Negative Urine Glucose (UA) Negative Urine Ketones Negative Urine Blood Small Urine Nitrate Negative Urine Bilirubin Negative Urine Urobilinogen < 2.0 H Urine Leukocytes Negative Ur Culture Indicated? Not indicated Urine Opiates Screen Ur Barbiturates Screen Ur Phencyclidine Scrn U Amphetamine/Methamph U Benzodiazepines Scrn U Cocaine Metab Screen U Cannabinoids Screen 04/25/17 04/25/17 04/25/17 17:06 17:06 17:06 WBC 10.2 RBC 4.77 Hgb 16.0 Hct 44.9 MCV 94.1 MCH 34 MCHC 35.6 RDW 12.6 Plt Count 263 MPV 9.5 L Neut % (Auto) 49.2 Lymph % (Auto) 41.1 [place] % (Auto) 8.6 Eos % (Auto) 0.6 Baso % (Auto) 0.2 Neut # (Auto) 5.0 Lymph # (Auto) 4.2 H [place] # (Auto) 0.9 H Eos # (Auto) 0.1 Baso # (Auto) 0.0 Immature Gran % 0.3 Nucleated RBC % 0.0 Immature Gran # 0.03 Nucleated RBCs # 0.00 D-Dimer, Quantitative Sodium 139 Potassium 3.8 Chloride 106 Carbon Dioxide 22 Anion Gap 14.8 BUN 9 Creatinine 0.80 GFR Calculation 102 BUN/Creatinine Ratio 11.00 Glucose 84 Calculated Osmolality 274.5 Calcium 9.1 Magnesium Total Bilirubin 0.50 AST 12 ALT 24 Alkaline Phosphatase 82 Troponin I < 0.015 B-Natriuretic Peptide Total Protein 7.2 Albumin 4.0 Globulin 3.2 Albumin/Globulin Ratio 1.2 Triglycerides Cholesterol LDL Cholesterol VLDL Cholesterol HDL Cholesterol Heart Disease Risk Ratio Lipase Free T4 TSH 3rd Generation Urine Color Urine Appearance Urine pH Ur Specific [place] Urine Protein Urine Glucose (UA) Urine Ketones Urine Blood Urine Nitrate Urine Bilirubin Urine Urobilinogen Urine Leukocytes Ur Culture Indicated? Urine Opiates Screen Ur Barbiturates Screen Ur Phencyclidine Scrn U Amphetamine/Methamph U Benzodiazepines Scrn U Cocaine Metab Screen U Cannabinoids Screen 04/25/17 17:06 WBC RBC Hgb Hct MCV MCH MCHC RDW Plt Count MPV Neut % (Auto) Lymph % (Auto) [place] % (Auto) Eos % (Auto) Baso % (Auto) Neut # (Auto) Lymph # (Auto) [place] # (Auto) Eos # (Auto) Baso # (Auto) Immature Gran % Nucleated RBC % Immature Gran # Nucleated RBCs # D-Dimer, Quantitative <= 0.5 Sodium Potassium Chloride Carbon Dioxide Anion Gap BUN Creatinine GFR Calculation BUN/Creatinine Ratio Glucose Calculated Osmolality Calcium Magnesium Total Bilirubin AST ALT Alkaline Phosphatase Troponin I B-Natriuretic Peptide Total Protein Albumin Globulin Albumin/Globulin Ratio Triglycerides Cholesterol LDL Cholesterol VLDL Cholesterol HDL Cholesterol Heart Disease Risk Ratio Lipase Free T4 TSH 3rd Generation Urine Color Urine Appearance Urine pH Ur Specific [place] Urine Protein Urine Glucose (UA) Urine Ketones Urine Blood Urine Nitrate Urine Bilirubin Urine Urobilinogen Urine Leukocytes Ur Culture Indicated? Urine Opiates Screen Ur Barbiturates Screen Ur Phencyclidine Scrn U Amphetamine/Methamph U Benzodiazepines Scrn U Cocaine Metab Screen U Cannabinoids Screen DS: Provider Date of admission: 04/25/17 17:53 Primary care physician: . No PCP Attending physician on admission: Kermit Thakkar MD Consults: 04/25/17 20:33 Consult to Physician [CONS] Routine Comment: chest pain Consulting Provider: Dagoberto Spring When should Consulting Provider be notified: Now Person Notified: Zahraa Date Notified: 04/26/17 Time Notified: 07:35 Discharging clinician: Michael Schaefer DO Expected date of discharge: 04/26/17
--- NOTE | 2017-04-26 16:25 | Nuclear Medicine Report ---
INDICATION: Chest pain. PROCEDURE: At rest, 10 mCi of 99technetium with sestamibi was injected and rest images were obtained. The patient then exercised according to the Nicho treadmill stress protocol. As target peak heart rate was no achieved, at peak stress 0.4 mg iv. Lexiscan was injected. At peak stress, 30 mCi of 99technetium with sestamibi was injected and post stress images were obtained. FINDINGS: At rest, sinus rhythm, 68 beats per minute, without significant repolarization abnormalities. Blood pressure is 130/80 mmHg. During stress, few PVCs and PACs were noted, the blood pressure lynne to 160/71 mmHg. The patient achieved 6.4 METS, after 6 minutes of exercise. The heart rate increased to 129 beats per minute, 78% of predicted, age- predicted heart rate. At peak stress, there was 0.[address] depression in V5 and V6. The test was stopped due to chest pressure and moderate shortness of breath. The test was then transitioned to Lexiscan. Rest and post stress gated and perfusion images were reviewed. The left ventricle is normal in size, the end-diastolic volume is 88 mL, the end- systolic volume 38 mL, the calculated left ventricular ejection fraction is 56% . There are no wall motion abnormalities. At rest, there is a small area of mildly decreased activity in the inferior/apical region, which does not change significantly post stress. This is suggestive of old myocardial disease, without ischemia; however, sensitivity is limited due to low peak heart rate achieved. CONCLUSION: 1. CLINICALLY POSITIVE, ELECTRICALLY NEGATIVE STRESS TEST, WITH LIMITED SENSITIVITY DUE TO LOW PEAK HEART RATE ACHIEVED. [place] TREADMILL STRESS SCORE 2. 2. NORMAL LEFT VENTRICULAR SIZE AND SYSTOLIC FUNCTION, WITH SUSPECTED SMALL AREA OF OLD MYOCARDIAL DISEASE WITHOUT ISCHEMIA IN THE INFERIOR/APICAL REGION. THE SENSITIVITY IS LIMITED FOR ISCHEMIA, DUE TO LOW PEAK HEART RATE ACHIEVED. 3. THIS TEST IS MODERATE RISK FOR FUTURE CARDIOVASCULAR EVENTS. Procedure performed and interpreted at [facility] Department of Radiology. [facility]
[2017-04-26] MEDS ORDERED: SIMVASTATIN 10 MG TABLET PO SCH (21:00)
== END 2017-04-26 15:47 | disposition home or self-care (01) ==
LOC: N.ED 16:33 → N.EDINP 16:33 → SUATTDRO 17:53 → N.EDINP 19:05 → N.TELES 19:08
PROVIDERS: ADMIT Internal Medicine; ATTEND Phlebology